=== PATIENT | male | born 1980 ===

== ENCOUNTER 2021-11-16 10:36 | Emergency (ER) | payer SELFPAY ==
[2021-11-16 11:54] VITALS: BP 155/91
[2021-11-16 13:55] LABS: Bilirubin,Urine NEG (Negative); Blood,Urine NEG (Negative); Calcium Oxalate Crystals,Urine 1+; Color,Urine Yellow (Yellow); Mucus,Urine FEW /HPF; Urobilinogen,Urine < 2.0 mg/dL (<2.0)
== END 2021-11-16 18:13 | disposition left against medical advice (07) ==
LOC: ED 10:36
DX: R10.30 Lower abdominal pain, unspecified (principal); Z53.21 Procedure and treatment not carried out due to patient leaving prior to being seen by health care provider
CPT/HCPCS: 81001